=== PATIENT | female | born 1970 | race Caucasian/White ===

== ENCOUNTER 2016-12-17 16:33 | Emergency (ER) | payer OTHER ==
[2016-12-17 17:52] LABS: BASO % 0.5 % (0.1-1.2); EOS # 0.1 10_X3_uL (0.0-0.4); EOS % 1.3 % (0.7-5.8); GRAN # 5.7 10_X3_uL (1.6-6.1); GRAN % 64.7 % (34.0-71.1); HEMATOCRIT 37.4 % (34-45); HEMOGLOBIN 12.4 g/dL (11.2-15.7); LYMPH # 2.4 10_X3_uL (1.2-3.7); LYMPH % 27.1 % (19.3-51.7); MEAN CORPUSCULAR HEMOGLOBIN 23.7 pg (27.0-33.0); MEAN CORPUSCULAR HGB CONC 33.2 g/dL (32.0-36.0); MEAN CORPUSCULAR VOLUME 71.5 fL (79-95); MEAN PLATELET VOLUME 9.9 fl (7.5-11.5); MONO # 0.6 10_X3_uL (0.2-0.9); MONO % 6.4 % (4.7-12.5); PLATELET COUNT 324 x10_3/uL (182-369); RED BLOOD COUNT 5.23 x10_6/uL (3.9-5.2); RED CELL DISTRIBUTION WIDTH 16.6 % (11.7-14.4); WHITE BLOOD COUNT 8.7 x10_3/uL (4.0-10.0)
[2016-12-17 18:11] LABS: ALBUMIN 4.1 gm/dL (3.4-5.0); ALKALINE PHOSPHATASE 121 U/L (50-136); ALT/SGPT 9 U/L (3.5-33.9); AST/SGOT 12 U/L (7.04-26.96); BILIRUBIN,TOTAL 0.22 mg/dL (0.0-1.0); BLOOD UREA NITROGEN 8 mg/dL (7-18); CALCIUM 9.2 mg/dL (8.7-10.7); CARBON DIOXIDE 18 mmol/L (21-32); CREATINE KINASE 93 U/L (21-215); CREATININE 0.6 mg/dL (0.6-1.3); GLUCOSE,RANDOM 123 mg/dL (70-99); MAGNESIUM 1.7 mg/dL (1.8-2.4); POTASSIUM 3.6 mmol/L (3.5-5.1); SODIUM 136 mmol/L (136-145); TOTAL PROTEIN 7.8 gm/dL (6.4-8.2)
== END 2016-12-17 18:38 | disposition home or self-care (01) ==
LOC: ER 16:33
PROVIDERS: Emergency Medicine
DX: S60.221A Contusion of right hand, initial encounter (principal); R56.9 Unspecified convulsions; F41.9 Anxiety disorder, unspecified; F17.210 Nicotine dependence, cigarettes, uncomplicated; Z79.899 Other long term (current) drug therapy
CPT/HCPCS: 36415; 70450; 73130; 80053; 80307; 81025; 82550; 82553; 83735; 85025; 93005; 99070; 99284-25